=== PATIENT | female | born 1990 | race Caucasian/White ===

== ENCOUNTER 2024-08-02 09:42 | Emergency (ER) | payer SELFPAY ==
[~2024-08-02] VITALS: Ht 154.9 cm; Wt 86.2 kg
[2024-08-02 09:46] VITALS: BP 119/80; PULSE 76; RESP 20; TEMP 98.1; O2SAT 99
[2024-08-02] MEDS: ACETAMINOPHEN EXTRA STRENGTH 500 MG TAB PO ONE (11:46)
[2024-08-02 13:17] VITALS: BP 121/80; PULSE 77; RESP 20; TEMP 98.1; O2SAT 99
== END 2024-08-02 13:17 | disposition home or self-care (01) ==
LOC: MED 09:42
DX: J02.9 Acute pharyngitis, unspecified (principal)
CPT/HCPCS: 70490; 99284